=== PATIENT | female | born 1975 | race Caucasian/White ===

== ENCOUNTER 2020-08-19 14:36 | Inpatient (IN) | payer OTHER ==
[~2020-08-19] VITALS: Ht 162.6 cm; Wt 70.3 kg
[2020-08-19 16:16] LABS: HEMOGLOBIN 12.6 gm/dl (12.3-15.3); RED BLOOD COUNT 4.11 M/UL (4.00-5.10); WHITE BLOOD COUNT 8.3 K/UL (4.5-11.0)
[2020-08-19 16:47] LABS: BUN/CREATININE RATIO 21 (0-10)
[2020-08-19] MEDS ORDERED: ZETIA10 MG PO (19:54)
[2020-08-19] MEDS ORDERED: ASPIRIN EC81 MG PO (19:55)
[2020-08-19] MEDS ORDERED: ATORVASTATIN CA40 MG PO (19:55)
[2020-08-20 04:03] LABS: HEMOGLOBIN 12.8 gm/dl (12.3-15.3); RED BLOOD COUNT 4.24 M/UL (4.00-5.10)
[2020-08-20 04:15] LABS: WHITE BLOOD COUNT 5.2 K/UL (4.5-11.0)
[2020-08-20 04:32] LABS: BUN/CREATININE RATIO 18 (0-10)
[2020-08-21 06:31] LABS: HEMOGLOBIN 12.2 gm/dl (12.3-15.3); RED BLOOD COUNT 4.09 M/UL (4.00-5.10)
[2020-08-21 06:39] LABS: WHITE BLOOD COUNT 8.1 K/UL (4.5-11.0)
[2020-08-21 06:55] LABS: BUN/CREATININE RATIO 23 (0-10)
[2020-08-22 05:33] LABS: RED BLOOD COUNT 4.31 M/UL (4.00-5.10)
[2020-08-22 05:35] LABS: WHITE BLOOD COUNT 11.4 K/UL (4.5-11.0)
[2020-08-22 05:49] LABS: BUN/CREATININE RATIO 21 (0-10)
[2020-08-23 04:40] LABS: HEMOGLOBIN 12.9 gm/dl (12.3-15.3); RED BLOOD COUNT 4.31 M/UL (4.00-5.10); WHITE BLOOD COUNT 11.5 K/UL (4.5-11.0)
[2020-08-23] MEDS ORDERED: DECADRON6 MG PO (11:33)
[2020-08-23] MEDS ORDERED: LEVOFLOXACIN750 MG PO (11:33)
[2020-08-23] MEDS ORDERED: IPRAT-ALBUT 0.5-3 ML NEB ×2 (11:33→12:54)
[2020-08-23] MEDS ORDERED: ELIQUIS2.5 MG PO (12:43)
[2020-08-23] MEDS ORDERED: PROTONIX 40 MG40 M1 PO (13:00)
== END 2020-08-23 19:12 | disposition home or self-care (01) | DRG 177 ==
LOC: ER1 14:36 → CDU 18:26 → M/S 18:26
PROVIDERS: Preventive Medicine Occupational Medicine; ADMIT Internal Medicine
PROC: 8E0ZXY6 Isolation (ICD-10-PCS; 2020-08-19)
PROC: XW033E5 Introduction of Remdesivir Anti-infective into Peripheral Vein, Percutaneous Approach, New Technology Group 5 (ICD-10-PCS; 2020-08-19)
PROC: 3E033GC Introduction of Other Therapeutic Substance into Peripheral Vein, Percutaneous Approach (ICD-10-PCS; 2020-08-20)
PROC: XW13325 Transfusion of Convalescent Plasma (Nonautologous) into Peripheral Vein, Percutaneous Approach, New Technology Group 5 (ICD-10-PCS; principal; 2020-08-21)
DX: U07.1 COVID-19 (principal); J96.01 Acute respiratory failure with hypoxia; J12.82 Pneumonia due to coronavirus disease 2019; J15.9 Unspecified bacterial pneumonia; E87.3 Alkalosis; R00.1 Bradycardia, unspecified; L40.9 Psoriasis, unspecified; E87.6 Hypokalemia; D64.9 Anemia, unspecified; Z72.0 Tobacco use; Z88.1 Allergy status to other antibiotic agents; Z88.0 Allergy status to penicillin; Z88.8 Allergy status to other drugs, medicaments and biological substances; Z82.49 Family history of ischemic heart disease and other diseases of the circulatory system; Z83.3 Family history of diabetes mellitus; K52.89 Other specified noninfective gastroenteritis and colitis
CPT/HCPCS: 0240U; 36415; 36600; 71045; 80053; 81001; 82550; 82553; 82803; 83605; 83690; 83874; 84439; 84443; 84484; 84703; 85025; 85027; 85652; 86140; 86900; 86901; 86927; 87070; 87086; 87205; 93005; 94640; 94664; 94760; 96374; 99285; J1100; J1650; J7030; J7050

== ENCOUNTER → 2020-08-31 | Outpatient (CLI) | payer OTHER ==
[~2020-08-31] MED LIST: ASPIRIN EC81 MG PO; ATORVASTATIN CA40 MG PO; DECADRON6 MG PO; ELIQUIS2.5 MG PO; IPRAT-ALBUT 0.5-3 ML NEB; LEVOFLOXACIN750 MG PO; PROTONIX 40 MG40 M1 PO; ZETIA10 MG PO
[2020-08-31 16:27] LABS: HEMOGLOBIN 13.7 gm/dl (12.3-15.3); RED BLOOD COUNT 4.49 M/UL (4.00-5.10); WHITE BLOOD COUNT 12.7 K/UL (4.5-11.0)
[2020-08-31 16:56] LABS: BUN/CREATININE RATIO 23 (0-10)
== END ==
LOC: LAB 14:20
PROVIDERS: Internal Medicine
DX: U07.1 COVID-19 (principal); J12.82 Pneumonia due to coronavirus disease 2019; D64.9 Anemia, unspecified; R94.5 Abnormal results of liver function studies
CPT/HCPCS: 71046; 80053; 85025